=== PATIENT | female | born 1935 | race Caucasian/White ===

== ENCOUNTER 2020-06-02 09:23 | Outpatient (CLI) | payer MEDICARE | END 2020-06-02 23:59 | disposition home or self-care (01) | LOC: CFH 09:23 | PROVIDERS: ATTEND Internal Medicine | DX: M81.0 Age-related osteoporosis without current pathological fracture (principal) | CPT/HCPCS: 77080 ==

== ENCOUNTER 2020-10-01 15:50 | Outpatient (CLI) | payer MEDICARE | END 2020-10-01 23:59 | disposition home or self-care (01) | LOC: CVU 15:50 | PROVIDERS: ATTEND Internal Medicine Cardiovascular Disease | DX: I65.23 Occlusion and stenosis of bilateral carotid arteries (principal) | CPT/HCPCS: 93880 ==